=== PATIENT | male | born 1980 | race Caucasian/White ===

== ENCOUNTER 2019-05-16 19:01 | Emergency (ER) | payer BC ==
--- NOTE | 2019-05-16 19:29 | ER Document Report ---
ED Medical Screen (RME) - General Chief Complaint: Rib Pain Stated Complaint: RIB INJURY/PAIN Time Seen by Provider: 05/16/19 19:22 Primary Care Provider: MILEY AVILES MD [Primary Care Provider] - Follow up as needed Mode of Arrival: Ambulatory Information source: Patient Notes: This 39-year-old male presents with left-sided rib pain possible left upper quad pain. Patient reports he was blackout drunk after drinking vodka last night possibly fell he is not sure. Woke up today was drinking today due to the pain. Unsure why he is hurting. Reports increased pain with deep breath increased pain with twisting. Respiratory rate even unlabored. I have greeted and performed a rapid initial assessment of this patient. A comprehensive ED assessment and evaluation of the patient, analysis of test results and completion of the medical decision making process will be conducted by additional ED providers. Dictation of this chart was performed using voice recognition software; therefore, there may be some unintended grammatical errors. - Related Data Allergies/Adverse Reactions: Penicillins Allergy (Verified 05/16/19 19:04) Physical Exam - Vital signs Vitals: Temp Pulse Resp BP Pulse Ox 98.3 F 94 16 143/75 H 94 05/16/19 19:03 05/16/19 19:03 05/16/19 19:03 05/16/19 19:03 05/16/19 19:03 Course - Vital Signs Vital signs: Temp Pulse Resp BP Pulse Ox 98.3 F 94 16 143/75 H 94 05/16/19 19:03 05/16/19 19:03 05/16/19 19:03 05/16/19 19:03 05/16/19 19:03 Doctor's Discharge - Discharge Referrals: MILEY AVILES MD [Primary Care Provider] - Follow up as needed
--- NOTE | 2019-05-16 20:05 | RADIOLOGY REPORT (SQ) ---
EXAM DESCRIPTION: RIBS LEFT W/PA CHEST COMPLETED DATE/TIME: 05/16/2019 7:39 pm REASON FOR STUDY: pain, fell? COMPARISON: None. TECHNIQUE: Frontal view of the chest and additional views of the left ribs acquired. NUMBER OF VIEWS: Four view. LIMITATIONS: None. FINDINGS: FRONTAL CXR: No pneumothorax. No pleural effusion. No atelectasis or infiltrates. RIBS: No displaced rib fractures. No lytic or blastic bony lesions. OTHER: No other significant finding. IMPRESSION: NO PNEUMOTHORAX. NO DISPLACED RIB FRACTURES. COMMENT: SITE OF TRAUMA/COMPLAINT MARKED/STAMP COMPLETED: NO. TECHNICAL DOCUMENTATION: JOB ID: [id number] [place]-72 2010 [employer]- All Rights Reserved Reading location - IP/workstation name: [email or web address]
[2019-05-16 22:44] LABS: ABSOLUTE EOSINOPHILS # (AUTO) 0.1 10^3/uL (0.0-0.6); ABSOLUTE LYMPHOCYTES (AUTO) 2.9 10^3/uL (0.5-4.7); ABSOLUTE MONOCYTES (AUTO) 0.7 10^3/uL (0.1-1.4); ABSOLUTE NEUT (AUTO) 5.6 10^3/uL (1.7-8.2); BASOPHILS % (AUTO) 0.5 % (0-2); EOSINOPHILS % (AUTO) 0.6 % (0-6); HEMATOCRIT 51.4 % (37.9-51.0); HEMOGLOBIN 17.6 g/dL (13.5-17.0); LYMPHOCYTES % (AUTO) 31.6 % (13-45); MEAN CORPUSCULAR HEMOGLOBIN 32.8 pg (27.0-33.4); MEAN CORPUSCULAR HGB CONC 34.2 g/dL (32.0-36.0); MEAN CORPUSCULAR VOLUME 96 fl (80-97); MONOCYTES % (AUTO) 7.5 % (3-13); PLATELET COUNT 263 10^3/uL (150-450); RED BLOOD COUNT 5.37 10^6/uL (4.35-5.55); RED CELL DISTRIBUTION WIDTH 14.2 % (11.5-14.0); SEGMENTED NEUTROPHILS % (AUTO) 59.8 % (42-78); TOTAL CELLS COUNTED % (AUTO) 100 %; WHITE BLOOD COUNT 9.3 10^3/uL (4.0-10.5)
[2019-05-16 22:52] LABS: INTERNATIONAL RATION (INR) 0.87; PROTHROMBIN TIME 11.8 SEC (11.4-15.4)
[2019-05-16 22:53] LABS: PARTIAL THROMBOPLASTIN TIME 28.4 SEC (23.5-35.8)
[2019-05-16 22:56] LABS: ALBUMIN 4.6 g/dL (3.5-5.0); ALKALINE PHOSPHATASE 55 U/L (38-126); ANION GAP 11 (5-19); ASPARTATE AMINO TRANSFERASE 48 U/L (17-59); BILIRUBIN,DIRECT 0.2 mg/dL (0.0-0.4); BILIRUBIN,TOTAL 0.3 mg/dL (0.2-1.3); BLOOD UREA NITROGEN 10 mg/dL (7-20); CALCIUM 9.2 mg/dL (8.4-10.2); CARBON DIOXIDE 30 mmol/L (22-30); CHLORIDE 100 mmol/L (98-107); GLUCOSE 125 mg/dL (75-110); POTASSIUM 4.4 mmol/L (3.6-5.0); TOTAL PROTEIN 7.8 g/dL (6.3-8.2)
--- NOTE | 2019-05-16 23:34 | RADIOLOGY REPORT (SQ) ---
EXAM DESCRIPTION: CT ABDOMEN PELVIS WITH IV CONTRAST COMPLETED DATE/TME: 05/16/2019 22:22 CLINICAL HISTORY: 39 years, Male, fall onto L side, TTP spleen COMPARISON: None. TECHNIQUE: Contrast enhanced CT of the abdomen/pelvis was obtained. Coronal and sagittal reformations were created. Images stored on PACS. All CT scanners at this facility use dose modulation, iterative reconstruction, and/or weight based dosing when appropriate to reduce radiation dose to as low as reasonably achievable (ALARA). [facility]: Dose Right [facility]: CareDose [facility]: Dose Right [facility]: Teradose 4D [facility]: Airstone LIMITATIONS: None. FINDINGS: Limited evaluation of the lower chest reveals clear lung bases. Liver enhances normally. The spleen, pancreas, gallbladder, and both adrenal glands appear normal. Both kidneys enhance symmetrically. No hydronephrosis or hydroureter. Delayed images reveal no evidence of collecting system injury. Urinary bladder appears normal. Small and large bowel appear normal in caliber. No evidence of bowel obstruction. The appendix is normal. Vascular structures opacify with contrast normally. No lymphadenopathy or drainable fluid collections are appreciated. Bone windows show no destructive osseous lesions or fractures. IMPRESSION: No acute abnormality within the abdomen or pelvis. TECHNICAL DOCUMENTATION: Quality ID # [id number]: Final reports with documentation of one or more dose reduction techniques (e.g., Automated exposure control, adjustment of the mA and/or kV according to patient size, use of iterative reconstruction technique) copyright 2010 [employer]- All Rights Reserved
[2019-05-16] MEDS ORDERED: LIDOCAINE 5% (700 MG) TRANSDERMAL ADH..PATCH TP ONE (23:48)
--- NOTE | 2019-05-16 23:54 | ER Document Report ---
ED General - General Chief Complaint: Rib Pain Stated Complaint: RIB INJURY/PAIN Time Seen by Provider: 05/16/19 19:22 Primary Care Provider: MILEY AVILES MD [EMERITUS] - Follow up as needed Mode of Arrival: Ambulatory Notes: 39-year-old male presents emergency department complaining of left-sided lower chest wall and upper abdominal pain after drinking last night, stumbling and falling onto his left hand side. Patient states he thought it was just a bruise but that he became concerned that he might have broken something because every time he breathes or moves it hurts on his left hand side. Admits to drinking at least a pint of hard liquor every day. Patient did try to self treat this morning by "taking the hair of the dog" when this did not help he decided to come in. - Related Data Allergies/Adverse Reactions: Penicillins Allergy (Verified 05/16/19 19:04) Past Medical History - General Information source: Patient - Social History Smoking Status: Current Every Day Smoker Frequency of alcohol use: Heavy Family History: Reviewed & Not Pertinent Patient has suicidal ideation: No Patient has homicidal ideation: No Review of Systems - Review of Systems Constitutional: No symptoms reported EENT: No symptoms reported Respiratory: See HPI Gastrointestinal: See HPI -: Yes All other systems reviewed and negative Physical Exam - Vital signs Vitals: Temp Pulse Resp BP Pulse Ox 98.3 F 94 16 143/75 H 94 05/16/19 19:03 05/16/19 19:03 05/16/19 19:03 05/16/19 19:03 05/16/19 19:03 Interpretation: Hypertensive - Notes Notes: GENERAL: Alert, interacts well. No acute distress. HEAD: Normocephalic, atraumatic EYES: Pupils equal, round and reactive to light, extraocular movements intact. ENT: Oral mucosa moist, tongue midline. NECK: Full range of motion, supple, trachea midline. LUNGS: Clear to auscultation bilaterally, no wheezes, rales or rhonchi, no respiratory distress. HEART: Regular rate and rhythm, no murmurs, gallops, rubs. ABDOMEN: Soft, tender palpation over the left upper quadrant, specifically over the spleen, also tender to palpation over anterior aspects of ribs 10, 11 and 12 on the left-hand side, small amount of ecchymoses noted in this area, nondistended, bowel sounds present in all 4 quadrants. EXTREMITIES: Moves all 4 extremities spontaneously, no edema, radial and dorsalis pedis pulses 2/4 bilaterally. No cyanosis. NEUROLOGICAL: Alert and oriented x3, normal speech. PSYCH: Normal mood, normal affect. SKIN: Warm, Dry, normal turgor. Course - Re-evaluation Re-evalutation: 05/16/19 23:51 CBC shows hemoconcentration with hemoglobin 17.6, platelets normal, coags normal, CMP unremarkable, rib series did not reveal any fracture however given the tenderness palpation over the spleen I did perform a CT scan as well, this did not show any splenic injury or rib fracture that was not seen on plain films. Discussed with patient the importance of reducing his alcohol intake. Shared resources with the patient regarding outpatient and inpatient rehab including the [facility]. Discharged home. Prescribed lidocaine patches as well as incentive spirometer. - Vital Signs Vital signs: Temp Pulse Resp BP Pulse Ox 98.3 F 94 16 143/75 H 94 05/16/19 19:03 05/16/19 19:03 05/16/19 19:03 05/16/19 19:03 05/16/19 19:03 - Laboratory Result Diagrams: 05/16/19 22:32 05/16/19 22:32 Laboratory results interpreted by me: 05/16/19 05/16/19 22:32 22:32 Hgb 17.6 H Hct 51.4 H RDW 14.2 H Glucose 125 H Discharge - Discharge Clinical Impression: Alcohol abuse Contusion of rib on left side Qualifiers: Encounter type: initial encounter Qualified Code(s): S20.212A - Contusion of left front wall of thorax, initial encounter Condition: Stable Disposition: HOME, SELF-CARE Additional Instructions: Rib Contusion You have been diagnosed as having bruised ribs. It will usually take a few weeks for these injured ribs to heal. You should cough or take a deep breath at least every hour or two to prevent lung complications. You should not engage in any strenuous physical activity until released by your physician. The usual rule is "if it hurts, don't do it." Return if you develop any of the following: (1) Fever or chills. (2) Persistent cough, coughing up blood, or shortness of breath. (3) Increasing pain. (4) Weakness, lightheadedness, or fainting. Use the incentive spirometer to take a deep breath 10 times every hour while you are awake. You may use the Lidoderm patch on for 12 hours and off for 12 hours to help with your pain. Please use ibuprofen (Motrin or Advil) 600-800 mg every 8 hours as needed for pain or fever. You may also use acetaminophen (Tylenol) 1000 mg every 4-6 hours as needed for pain or fever. Please be aware that many medications contain acetaminophen, do not exceed a total of 1000 mg of acetaminophen every 6 hours. You need to seriously consider decreasing the amount of alcohol that you drink. You should not try to quit drinking on your own. This could cause life- threatening withdrawal. Please consider using 1 of the community resources such as [place] [facility] right next to the hospital. Prescriptions: Lidocaine [Lidoderm 5% (700 mg) Transdermal Patch] 1 patch TP DAILY #10 adh..patch Referrals: MILEY AVILES MD [EMERITUS] - Follow up as needed
[2019-05-17 00:03] VITALS: BP 130/90
== END 2019-05-17 00:11 | disposition home or self-care (01) ==
LOC: ER 19:01
DX: S20.212A Contusion of left front wall of thorax, initial encounter (principal); F10.10 Alcohol abuse, uncomplicated; R07.81 Pleurodynia; R07.89 Other chest pain; R10.10 Upper abdominal pain, unspecified; W19.XXXA Unspecified fall, initial encounter; F17.200 Nicotine dependence, unspecified, uncomplicated
CPT/HCPCS: 36415; 74177; 80053; 85025; 85610; 85730; 99284